=== PATIENT | male | born 1945 | race Caucasian/White ===

== ENCOUNTER 2023-12-27 10:55 | Emergency (ER) | payer MEDICARE ==
[2023-12-27] VITALS (8 sets, daily range): BP systolic 131–144; BP diastolic 60–72
[~2023-12-27] VITALS: Ht 182.9 cm; Wt 83.9 kg
== END 2023-12-27 12:42 | disposition home or self-care (01) ==
LOC: ED 10:55
DX: S09.8XXA Other specified injuries of head, initial encounter (principal); I10 Essential (primary) hypertension; W22.8XXA Striking against or struck by other objects, initial encounter; Z72.0 Tobacco use